=== PATIENT | male | born 1970 | race Caucasian/White ===

== ENCOUNTER 2023-05-25 07:43 | Outpatient (CLI) | payer BC, SELFPAY | END 2023-05-25 07:44 | disposition home or self-care (01) | LOC: NFLDREF 12:18 | PROVIDERS: PCP Internal Medicine; Referring Provider Internal Medicine; Visit Provider Internal Medicine | DX: Z00.00 Encounter for general adult medical examination without abnormal findings (principal); E66.9 Obesity, unspecified; Z13.6 Encounter for screening for cardiovascular disorders; Z12.5 Encounter for screening for malignant neoplasm of prostate; Z13.9 Encounter for screening, unspecified | CPT/HCPCS: 80053; 80061; 84153 ==

== ENCOUNTER 2023-12-19 09:08 | Outpatient (CLI) | payer BC, SELFPAY | END 2023-12-19 09:09 | disposition home or self-care (01) | PROVIDERS: PCP Internal Medicine; Visit Provider Internal Medicine | DX: Z11.3 Encounter for screening for infections with a predominantly sexual mode of transmission (principal) | CPT/HCPCS: 86703; 87491; 87591 ==

== ENCOUNTER 2024-06-21 08:10 | Outpatient (CLI) | payer BC, SELFPAY ==
--- OUTSIDE RECORDS SUMMARY | 2024-06-21 08:14 | XMS_ITS | Clinical Summary ---
Author Organization [facility] Address [address] [place] [address] Care Team Providers Care Special Education Inclusion Teacher Name Role Phone Unavailable Primary Care Provider Unavailabl e Source Comments You are receiving this document as you are listed as the primary care provider,follow-up provider, or the patient has been referred to you for consultation.This is in compliance with the Medicare and[facility] E[facility] Incentive Program,which states Providers who transition their patient to another setting of careor provider of care or refers their patient to another provider of care shouldprovide summary care record for each transition of care or referral. [employer] Allergies No known active allergies Medications Medication Sig Dispensed Refills Start Date End Date Status FLUoxetine (PROZAC) 40 MG capsule Take 40 mg by mouth daily. Active atovaquone-proguanil (MALARONE) 250-100 MG tabletIndications:Co unseling for travel Take one tab daily. Start 2 days before malarial mosquito exposure, daily while there, and continue for 7 days after leaving. 12 Tablet 01/29/2019 Active traZODone (DESYREL) 100 MG tablet Take 100 mg by mouth daily at bedtime. Active buPROPion (WELLBUTRIN) 100 MG tablet Take 100 mg by mouth two times a day. Active Multiple Vitamin (ONE-DAILY MULTI VITAMINS OR) Active CALCIUM-VITAMIN D OR Acti ve Immunizations Name Administration Dates Next Due HepA Adult (19+ yrs) 01/29/2019 HepB Adult (Engerix-B, 20+ y rs, 3 dose series) 01/29/2019 Influenza IIV4 (Quadrivalent) 0.5mL (59360) 06/21,06/23/2017,06/24/2015 Tdap 05/23/2014 YF (Yellow Fever) 01/29/2019 Social History Tobacco Use Types Packs/Day Years Used Date Smoking Tobacco: Never Assessed Sex and Gender Information Value Date Recorded Sex Assigned at Not on file Gender Identity Not on file Sexual Orientation Not on file Plan of Treatment Health Maintenance Due Date Last Done Comments Colon Cancer Screening Plan Due 1971 Hep C Screening (Preventive Services) 1971 PSA Screening Discussion 1971 HIV Screening (Preventive Services) 1987 Adult Preventive Visit 12/30/1989 Cholesterol 12/30/2006 HepB (2) 02/26/2019 01/29/2019 HepA (2 of 2 - Risk 2-dose series) 08/01/2019 01/29/2019 Zoster/Shingles (1 of 2) 12/30/2021 COVID-19 Vaccine ( season) 2024 01/24/2021, 01/03/2021 Influenza (#1) 2024 06/18/2020, 10/2018, 07/19/2018, Additional history exists DTaP/Tdap/Td (2 - Tdap) 05/23/2024 05/23/2014 Hib Aged Out No longer eligi ble based on patient's age to complete this topic IPV (Polio) Aged Out No longer eligi ble based on patient's age to complete this topic MCV4 Aged Out No longer eligi ble based on patient's age to complete this topic Pneumococcal Aged Out No longer eligi ble based on patient's age to complete this topic
== END 2024-06-21 08:11 | disposition home or self-care (01) ==
PROVIDERS: PCP Internal Medicine; Visit Provider Internal Medicine
DX: Z13.6 Encounter for screening for cardiovascular disorders (principal); Z12.5 Encounter for screening for malignant neoplasm of prostate; Z13.9 Encounter for screening, unspecified
CPT/HCPCS: 80053; 80061; G0103

== ENCOUNTER 2024-09-27 08:24 | Outpatient (CLI) | payer BC, SELFPAY ==
--- NOTE | 2024-09-27 08:30 | CRLHL7_ITS ---
For Patients: As a result of the Century Cures Act, medical imaging exams and procedure reports are released immediately into your electronic medical record. You may view this report before your referring provider. If you have questions, please contact your health care provider. INDICATION: Head injury. TECHNIQUE: Noncontrast CT images of the brain. COMPARISON: CT sinus 10/07/2021. FINDINGS: The ventricles and sulci are within normal limits for patient age. No mass effect or midline shift. Davis-white differentiation is maintained. No acute intracranial hemorrhage or pathologic extra-axial fluid collection. The globes are symmetric. The calvarium is intact. Mild paranasal sinus mucosal thickening. Trace opacification left mastoid air cells. IMPRESSION: No acute intracranial hemorrhage or mass effect. Please note that all CT scans at this facility use dose modulation, iterative reconstruction, and/or weight-based dosing when appropriate to reduce radiation dose to as low as reasonably achievable. Dictated by Quinten Beavers MD @ 09/27/2024 8:53:25 AM (Electronically Signed)
== END 2024-09-27 08:25 | disposition home or self-care (01) ==
LOC: CT 08:25
PROVIDERS: PCP Internal Medicine; Visit Provider Internal Medicine
DX: S09.90XA Unspecified injury of head, initial encounter (principal)
CPT/HCPCS: 70450

== ENCOUNTER 2025-04-22 17:26 | Emergency (ER) | payer BC, SELFPAY ==
--- OUTSIDE RECORDS SUMMARY | 2025-04-22 17:28 | XMS_ITS | Clinical Summary ---
Author Organization [employer] [facility] Address [facility] [place] [address] Care Team Providers Care Parachutist/Combatant Diver Qualified Name Role Phone Clinic, No Pcp Or Primary Care Provider Unavaila ble Allergies Active Allergy Reactions Criticality Noted Date Comments Paroxetine Hcl Sedation Low 09/27/2018 Medications traZODone (DESYREL) 50 mg tablet Take 50 mg by mouth at bedtime if needed for Sleep. Active buPROPion (WELLBUTRIN XL) 150 mg Extended-Release tablet Take 150 mg by mouth every morning. Active cholecalciferol, Vitamin D3, 2,000 unit tablet Take 4,000 Units by mouth once daily. Active FLUoxetine (PROZAC) 40 mg capsule Take 40 mg by mouth once daily. 0 06/28/20 19 Active polyethylene glycol (MIRALAX) 17 g powder for solution Take 1 Packet by mouth once daily. Active sodium phosphate,mono-d ibasic (FLEET ENEMA RECT) Insert 1 Enema rectally once daily if needed (Constipation). Active multivitamin with minerals (MULTIVITAMIN & MINERAL FORMULA ORAL) Take 1 tablet by mouth once daily. Active melatonin 5 mg capsule Take 5 mg by mouth at bedtime if needed for Sleep. Active HYDROmorphone (DILAUDID) 4 mg tabletIndication s:S/P lumbar fusion Take 1-1.5 tablets by mouth every 3 hours if needed for Pain 42 tablet 08/17/2019 10:19 AM CLINICAL PROGRAM COORDINATOR 08/17/20 19 Active acetaminophen (TYLENOL EXTRA STRGTH) 500 mg tabletIndication s:S/P lumbar fusion Take 2 tablets by mouth every 6 hours. Max acetaminophen dose: 4000mg in 24 hrs. 100 tablet 08/17/2019 10:19 AM CLINICAL PROGRAM COORDINATOR 08/17/20 19 Active sennosides (SENNA) 8.6 mg tabletIndication s:Constipation due to opioid therapy Take 2 tablets by mouth 2 times daily if needed. 50 tablet 08/17/2019 10:19 AM CLINICAL PROGRAM COORDINATOR 08/17/20 19 Active WalkerIndication s:S/P lumbar fusion Walker with front wheels for home use. 1 Device 08/17/20 19 Active magnesium citrate (CITRATE OF MAG)Indications: Drug-induced constipation Take 120 mL by mouth once daily if needed for Constipation. 1 Bottle 3 08/22/20 19 Active cefuroxime axetil (CEFTIN) 500 mg tablet 09/09/20 21 Active Active Problems Problem Noted Date Diagnosed Date S/P lumbar fusion 08/15/2019 Adjacent segment disease with spinal stenosis Lumbar radiculopathy 09/29/2018 Depression 09/29/2018 Sleep apnea 09/29/2018 Chronic pain 09/29/2018 S/P cervical disc replacement 08/09/2017 Chronic, continuous use of opioids Acute postoperative pain Immunizations Immunization Administration Dates Next Due COVID-19 vaccine (Endomondo 30mcg/0.3mL) PF, MDV 01/24/2021,01/03/2021 Influenza, IIV4 07/19/2018, 7,07/03/2016,2014,06/24/2015 Td (Age >=7 Years) 05/23/2014 Tdap 05/23/2014 Social History Tobacco Use Types Packs/Day Years Used Date Smoking Tobacco: Never Smokeless Tobacco: Never Tobacco Cessation:Counseling Given: Yes Alcohol Use Standard Drinks/Week Comments Not Currently 4 (1 standard drink = 0.6 oz pur e alcohol) rare PHQ-2 Answer Date Recorded PHQ-2 Score 3 08/22/2019 Sex and Gender Information Value Date Recorded Sex Assigned at Not on file Legal Sex Male 10:56 AM CDT Gender Identity Not on file Sexual Orientation Not on file Obstetrics History Last Filed Vital Signs Vital Sign Reading Time Taken Comments Blood Pressure 126/78 09/24/2021 9:04 AM CLINICAL PROGRAM COORDINATOR Pulse 70 09/24/2021 9:04 AM CLINICAL PROGRAM COORDINATOR Temperature 36.7 C (98 F) 08/22/2019 1:24 PM CLINICAL PROGRAM COORDINATOR Respiratory Rate 16 08/18/2019 8:29 AM CLINICAL PROGRAM COORDINATOR Oxygen Saturation 95% 09/24/2021 9:0 4 AM CLINICAL PROGRAM COORDINATOR Inhaled Oxygen Concentration - - Weight 110.5 kg (243 lb 11. 2 oz) 09/24/2021 9:04 AM CLINICAL PROGRAM COORDINATOR Height 185 cm (6' 0.84) 08/22/2019 1:2 4 PM CLINICAL PROGRAM COORDINATOR wearing shoes Body Mass Index 32.3 08/22/2019 1:24 PM CLINICAL PROGRAM COORDINATOR Plan of Treatment Health Maintenance Due Date Last Done Comments HIV for age 15-65 12/30/1986 Hepatitis C screening for ag e 18-79 12/30/1989 Hepatitis B series for 19+ ( 1 of 3 - 19+ 3-dose series) 12/30/1990 Colonoscopy through age 75 12/30/2016 Lipids for age 45-75 12/30/2016 BMI (ht and wt on same day) for age 18+ 08/22/2020 08/22/2019, 08/06/2019 Depression screening for age 12+ 08/22/2020 08/22/20 19 Pneumococcal series for age 50+ (1 of 1 - PCV) 12/30/2021 Zoster (shingles) series for age 50+ (1 of 2) 12/30/2021 COVID-19 vaccine series ( season) 2024 08/12/2021, 01/24/2021, 01/03/2021 Tetanus booster 05/23/2024 05/23/2014, 05/23/2014 Influenza Vaccine (#1) 2025 8, 06/23/2017, 07/03/2016, Additional history exists Medical Devices Implanted Type Area Fisher Terrapin Device Identifier Shelf Expiration Date Model / Serial / Lot Disc Cerv [id number] Mobi-C - [id number] Implanted:Qty: 1 on 08/08/2017 by Giancarlo Gutierrez MD at [facility] N/A: Spine [employer] Spine 01/17/2022 [id number] / / [id number] allofuse Fiber Ball 5cc Implanted:Qty: 1 on 08/15/2019 by Giancarlo Gutierrez MD at [facility] Explanted:at [facility] (Quantity not on file) Spine Allosource 07/03/2020 [id number] / / [id number] Description:ALLOFUSE FIBER B ALL 5CC [id number] 1-4mm 60cc Medtronic Fine Canclls Freeze Dried Implanted:Qty: 1 on 08/15/2019 by Giancarlo Gutierrez MD at [facility] Explanted:at [facility] (Quantity not on file) Spine Medtronic Spine/Ortho 07/19/2023 [id number] / [id number] / Set Screw Lmbr Ant 5.5mm Solera Break Off - [id number] Implanted:Qty: 6 on 08/15/2019 by Giancarlo Gutierrez MD at [facility] Spine Medtronic Spine/Ortho [id number] / / Screw Lmbr Post 6.5x50mm Solera 5.5/6 Va Cocr - [id number] Implanted:Qty: 1 on 08/15/2019 by Giancarlo Gutierrez MD at [facility] Spine Medtronic Spine/Ortho [id number] # / / Screw Lmbr Post 7.5x50mm Solera 5.5/6 Va Cocr - [id number] Implanted:Qty: 5 on 08/15/2019 by Giancarlo Gutierrez MD at [facility] Spine Medtronic Spine/Ortho [id number] # / / Hollis Lmbr 60x5.5mm Solera 5.5/6cvd Titnm - [id number] Implanted:Qty: 2 on 08/15/2019 by Giancarlo Gutierrez MD at [facility] Spine Medtronic Spine/Ortho [id number] / / Insurance [employer] [place] Advance Directives * Full Code (Latest Code Status on File) Date Activated Date Inactivated Comments 08/15/2019 7:26 PM 08/18/2019 2:51 PM * Full Code Date Activated Date Inactivated Comments 09/29/2018 6:55 PM 09/30/2018 3:39 PM * Full Code Date Activated Date Inactivated Comments 08/08/2017 5:05 PM 08/09/2017 1:01 PM * Full Code Date Activated Date Inactivated Comments 08/08/2017 9:30 AM 08/08/2017 4:55 PM Care Teams Parachutist/Combatant Diver Qualified Relationship Specialty Start Date End Date Clinic, No Pcp Or . PCP - General 08/03/17
--- OUTSIDE RECORDS SUMMARY | 2025-04-22 17:28 | XMS_ITS | Clinical Summary ---
Author Organization [facility] Address [address] [place] [address] Care Team Providers Care Plating Tank Operator Name Role Phone Unavailable Primary Care Provider Unavailabl e Source Comments You are receiving this document as you are listed as the primary care provider,follow-up provider, or the patient has been referred to you for consultation.This is in compliance with the Medicare and[facility] EHR Incentive Program,which states Providers who transition their patient to another setting of careor provider of care or refers their patient to another provider of care shouldprovide summary care record for each transition of care or referral. [facility] Allergies No known active allergies Medications FLUoxetine (PROZAC) 40 MG capsule Take 40 mg by mouth daily. Active atovaquone-prog uanil (MALARONE) 250-100 MG tabletIndicatio ns:Counseling for travel Take one tab daily. Start [...] MULTI VITAMINS OR) Active CALCIUM-VITAMIN D OR Active Immunizations Immunization Administration Dates Next Due HepA Adult (19+ yrs) 01/29/2019 HepB Adult (Engerix-B, 20+ y rs, 3 dose series) 01/29/2019 Influenza IIV4 (Quadrivalent) 0.5mL (46834) 06/21,06/23/2017,06/24/2015 Tdap 05/23/2014 YF (Yellow Fever) 01/29/2019 Social History Tobacco Use Types Packs/Day Years Used Date Smoking Tobacco: Never Assessed Sex and Gender Information Value Date Recorded Sex Assigned at Not on file Legal Sex Male 1:55 PM CDT Gender Identity Not on file Sexual Orientation Not on file Plan of Treatment Health Maintenance Due Date Last Done Comments Colon Cancer Screening Plan Due 1971 Hep C Screening (Preventive Services) 1971 PSA Screening Discussion 1971 HIV Screening (Preventive Services) 1987 Adult Preventive Visit 12/30/1989 Cholesterol 12/30/2006 HepB Vaccine (2) 02/26/2019 01/29/2019 HepA Vaccine (2 of 2 - Risk 2-dose series) 08/01/2019 01/29/2019 Pneumococcal Vaccine 50+ Yrs (1 of 1 - PCV) 12/30/2021 Zoster/Shingles Vaccine (1 of 2) 12/30/2021 COVID-19 Vaccine (3 - season) 2024 01/24/2021, 01/03/2021 DTaP/Tdap/Td Vaccine (2 - Tdap) 05/23/2024 05/23/2014 Influenza Vaccine (#1) 2025 0, 06/20/2019, 07/19/2018, Additional history exists Hib Vaccine Aged Out No longer eligi ble based on patient's age to complete this topic IPV (Polio) Vaccine Aged Out No longe r eligible based on patient's age to complete this topic MCV4 Vaccine Aged Out No longer eligi ble based on patient's age to complete this topic Meningococcal B Vaccine Aged Out No l onger eligible based on patient's age to complete this topic Insurance AETNA AETNA
[2025-04-22 17:36] VITALS: BP 131/80; PULSE 69; RESP 18; TEMP 36.1; O2SAT 98; BMI 31.0
--- NOTE | 2025-04-22 19:28 | ED_ITS ---
HPI - Wound/Laceration General Chief Complaint: Laceration/Wound Stated Complaint: Cut RT hand between index finger and thumb Time Seen by Provider: 04/22/25 18:59 History of Present Illness HPI narrative: This 54-year-old male comes in with a laceration in the webspace between his thumb and right index finger. He was cut there by a piece of broken glass. His tetanus status is up-to-date being administered last about 2 years ago. Related Data Home Medications ?Medication ?Instructions ?Recorded ?Confirmed cholecalciferol (vitamin D3) 50 100 mcg PO QDAY 01/07/25 mcg (2,000 unit) capsule mecobalamin (vitamin B12) 1,000 1,000 mcg PO QDAY 10/1001/07/25 mcg chewable tablet melatonin 5 mg tablet 5 mg PO QDAY PRN 05/20/22 multivitamin 1 tab PO QDAY 05/20/2201/07 triamcinolone acetonide 0.1 % 1 applic topical BID PRN 05/20/22 01/07/25 topical cream Previous Rx's ?Medication ?Instructions ?Recorded bupropion HCl 150 mg 24 hr tablet, 150 mg PO QAM Depre ssion #90 tabs 12/26/24 extended release sertraline 50 mg tablet (Zoloft) 50 mg PO QDAY Depress ion #90 tabs 12/26/24 Allergies Allergy/AdvReac Type Severity Reaction Status Date / Time paroxetine Allergy Unknown Verified 01/07/25 14:59 Review of Systems Status of ROS: Reports: 10 or more systems reviewed and unremarkable except as noted in History and below Narrative: Constitutional: No fevers, no weight gain or loss. Eyes: No discharge. No vision changes. HENT: No congestion, no sore throat, no ear pain. Cardiovascular: No chest pain, no palpitations. Respiratory: No shortness of breath, no wheezes, no cough. Gastrointestinal: No abdominal pain, no vomiting, no diarrhea. Genitourinary: No dysuria, no hematuria. Musculoskeletal: Normal range of motion. Skin: No rashes, no pruritis. Neurological: No dizziness, weakness, sensory change, speech change. Endo/Heme/Allergies: No bruising or bleeding. No polydipsia. Pysch: no suicidality, no anxiety, no insomnia. All other systems reviewed and are negative. [facility] Medical History (Updated 04/22/25 @ 19:30 by Bakari Troncoso MD) Head injury ?S09.90XA - Unspecified injury of head, initial encounter (ICD-10) Screening due ?Z13.9 - Encounter for screening, unspecified (ICD-10) Back pain ?M54.9 - Dorsalgia, unspecified (ICD-10) Foot drop ?M21.379 - Foot drop, unspecified foot (ICD-10) History of basal cell carcinoma (BCC) ?Z85.828 - Personal history of other malignant neoplasm of skin (ICD-10) Depression ?F32.A - Depression, unspecified (ICD-10) Surgical History Status post lumbar spinal fusion ?Z98.1 - Arthrodesis status (ICD-10) History of umbilical hernia repair (10/01/14) ?Z98.890 - Other specified postprocedural states (ICD-10) ?Z87.19 - Personal history of other diseases of the digestive system (ICD-10) History of spinal surgery ?Z98.890 - Other specified postprocedural states (ICD-10) History of neck surgery (08/08/17) ?Z98.890 - Other specified postprocedural states (ICD-10) Social History Smoking Status: Never smoker Exam Narrative: Exam Narrative: Constitutional: Well-developed, well-nourished, no acute distress. HEENT: Normocephalic, atraumatic. Neck: Normal range of motion. Nontender. Supple. Heart: Intact distal pulses. Lungs: No chest discomfort. No wheezes, rhonchi, or rales. Abdomen: Nontender. Back: Normal range of motion. Extremities: Normal range of motion. 3 cm linear laceration across the webspace between the right thumb and index finger. Skin: No rash. Warm. No erythema or pallor. Neurologic: No altered sensation. No weakness. Alert and oriented. Psychiatric: No suicidality. No anxiety or depression. No insomnia. Nursing notes and vitals signs are reviewed. Const: Vital Signs, click to edit/add: Vital Signs - 24 hr 04/22/25 17:36 Temperature 96.9 F L Pulse Rate [Pulse Oximeter] 69 Respiratory Rate 18 Blood Pressure [Ri ght Upper Arm] 131/80 Pulse Oximetry 98 Oxygen Delivery Me thod Room Air Course Vital Signs Vital signs: Initial Vital Signs Temperature 96.9 F L 04/22/25 17:36 Temperature Source Temporal Artery Scan 04/22/25 17:36 Pulse Rate 69 04/22/25 17:36 Pulse Rhythm Regular 04/22/25 17:36 Respiratory Rate 18 04/22/25 17:36 Blood Pressure 131/80 04/22/25 17:36 Blood Pressure Mean 97 04/22/25 17:36 Blood Pressure Position Sitting 04/22/25 17:36 Pulse Oximetry 98 04/22/25 17:36 Oxygen Delivery Method Room Air 04/22/25 17:36 Vital Signs Temperature 96.9 F L 04/22/25 17:36 Pulse Rate 69 04/22/25 17:36 Respiratory Rate 18 04/22/25 17:36 Blood Pressure 131/80 04/22/25 17:36 Pulse Oximetry 98 04/22/25 17:36 Oxygen Delivery Method Room Air 04/22/25 17:36 Temperature 96.9 F L 04/22/25 17:36 Pulse Rate 69 04/22/25 17:36 Respiratory Rate 18 04/22/25 17:36 Blood Pressure 131/80 04/22/25 17:36 Pulse Oximetry 98 04/22/25 17:36 Oxygen Delivery Method Room Air 04/22/25 17:36 MDM - Wound/Laceration MDM Narrative Medical decision making narrative: This patient has a laceration that would benefit from suture repair. After anesthesia with 1% lidocaine with epinephrine the wound was explored to its base. His tendon function and range of motion oral normal. There is no neurologic deficit. I did place 5 sutures in interrupted fashion using 4.0 Ethilon suture. The wound edges were nicely approximated. Instructions regarding wound care were given including the need for suture removal in 7-10 days. Discharge Plan Discharge Clinical Impression: Laceration Patient Disposition: Home, Self-Care Condition: Improved Additional Instructions: Keep wound clean and dry. Use [id number] medicines as needed and directed. Follow up for suture removal in 7-10 days. Prescriptions: No Action triamcinolone acetonide 0.1 % cream 1 applic topical BID PRN mecobalamin (vitamin B12) 1,000 mcg tablet,chewable 1,000 mcg PO QDAY melatonin 5 mg tablet 5 mg PO QDAY PRN multivitamin Tablet 1 tab PO QDAY cholecalciferol (vitamin D3) 50 mcg (2,000 unit) capsule 100 mcg PO QDAY bupropion HCl 150 mg tablet extended release 24 hr 150 mg PO QAM Qty: 90 1RF sertraline [Zoloft] 50 mg tablet 50 mg PO QDAY Qty: 90 1RF Follow Up/Referrals: Lowell Masters MD [Primary Care Provider, Internal Medicine] Stand Alone Forms: [employer] Info Instructions
== END 2025-04-22 19:38 | disposition home or self-care (01) ==
PROVIDERS: Emergency Provider Emergency Medicine Emergency Medical Services; PCP Internal Medicine
DX: S61.412A Laceration without foreign body of left hand, initial encounter (principal); W25.XXXA Contact with sharp glass, initial encounter
CPT/HCPCS: 12002; 99283; 99284

== ENCOUNTER 2025-07-19 07:45 | Outpatient (CLI) | payer BC, SELFPAY | END 2025-07-19 07:46 | disposition home or self-care (01) | LOC: NFLDREF 19:19 | PROVIDERS: PCP Internal Medicine; Referring Provider Internal Medicine; Visit Provider Internal Medicine | DX: E78.5 Hyperlipidemia, unspecified (principal) | CPT/HCPCS: 80053; 80061; G0103 ==